=== PATIENT | female | born 1975 | race African-American/Black ===

== ENCOUNTER 2024-10-17 12:41 | Emergency (ER) | payer MEDICAID ==
[~2024-10-17] VITALS: Ht 162.6 cm; Wt 82.0 kg
[2024-10-17 12:42] VITALS: O2SAT 98
[2024-10-17] MEDS: SODIUM CHLORIDE 0.9% 1,000 ML IV ONE (13:00)
[2024-10-17] MEDS ORDERED: ONDANSETRON HCL 4MG/2ML INJ IV STA (13:05)
[2024-10-17 14:12] LABS: CHLORIDE 96 mEq/L (98-107); POTASSIUM 3.3 mEq/L (3.5-5.1); SODIUM 136 mEq/L (136-145)
[2024-10-17 14:13] LABS: CARBON DIOXIDE 25 mEq/L (21-32)
[2024-10-17 14:14] LABS: BASOPHILS % 0.4 % (0.0-2.0); CALCIUM 9.4 mg/dL (8.7-10.4); HEMATOCRIT. 37.4 % (36.0-48.0); HEMOGLOBIN. 12.1 g/dL (12.0-16.0); LYMPHOCYTES % 15.8 % (20.0-50.0); MEAN CORPUSCULAR HEMOGLOBIN 28.8 pg (28.0-32.0); MEAN CORPUSCULAR HGB CONC 32.5 g/dL (31.0-37.0); MEAN CORPUSCULAR VOLUME 88.7 fL (81.0-99.0); MEAN PLATELET VOLUME 7.5 fl (7.4-10.4); MONOCYTES % 8.8 % (2.0-8.0); PLATELET 317 x1000/uL (130-400); RED BLOOD CELL COUNT 4.22 mill/uL (4.2-5.4); RED CELL DISTRIBUTION WIDTH 15.9 % (11.6-14.6); WHITE BLOOD COUNT 8.4 x1000/uL (4.5-11.0)
[2024-10-17 14:17] LABS: HCG SCREEN NEGATIVE
[2024-10-17 14:18] LABS: CREATININE 0.7 mg/dL (0.6-1.0); GLUCOSE 103 mg/dL (70-105)
[2024-10-17 14:19] LABS: TROPONIN I HIGH SENSITIVITY 15 ng/L (3.0-34); UREA NITROGEN BLOOD 6 mg/dL (9-23)
[2024-10-17 14:20] LABS: ALANINE AMINOTRANSFERASE 32 IU/L (10-49); ALBUMIN 4.9 g/dL (3.2-4.8); ASPARTATE AMINOTRANSFERASE 41 IU/L (<34); INR 1.1; PROTHROMBIN TIME 11.3 sec (9.6-11.0)
[2024-10-17 14:21] LABS: BILIRUBIN DIRECT 0.2 mg/dL (<=3.0); BILIRUBIN TOTAL 0.6 mg/dL (0.1-1.0); PROTEIN TOTAL 9.3 g/dL (6.0-8.3)
[2024-10-17] MEDS: ONDANSETRON HCL 4MG/2ML INJ IV NR (14:46)
[2024-10-17] MEDS: HYDRALAZINE 20MG/ML VIAL IV ONE (14:55)
[2024-10-17] MEDS ORDERED: POTASSIUM CHLORIDE 20MEQ TABLET SR PO ONE (15:30)
[2024-10-17 16:58] LABS: TROPONIN I HIGH SENSITIVITY 19 ng/L (3.0-34)
[2024-10-17] MEDS: POTASSIUM CHLORIDE 20MEQ TABLET SR PO NR (17:29)
[2024-10-17 19:50] LABS: CLARITY URINE CLEAR (CLEAR); COLOR URINE YELLOW (YELLOW); GLUCOSE URINE NEGATIVE (NEGATIVE); KETONES URINE 2+ (NEGATIVE); LEUKOCYTE ESTERASE URINE NEGATIVE (NEGATIVE); NITRITE URINE NEGATIVE (NEGATIVE); OCCULT BLOOD URINE NEGATIVE (NEGATIVE); PH URINE 7.5 (4.5-8.0); PROTEIN URINE 3+ (NEGATIVE); UROBILINOGEN URINE 0.2 E.U./dL (0.2-1.0)
[2024-10-17 20:05] LABS: BACTERIA URINE TRACE; SQUAMOUS EPITHELIAL CELL URINE 1+ /lpf (RARE/1+); WBC URINE 0-2 /hpf (0-2)
[2024-10-17] MEDS ORDERED: ONDA-239 PO (20:14)
[2024-10-17] MEDS ORDERED: CEFP200T13 MT (20:14)
[2024-10-17] MEDS ORDERED: NAPR-681 MT (20:14)
[2024-10-17 20:29] VITALS: BP 160/66; PULSE 102; RESP 18; TEMP 36.8; O2SAT 99
== END 2024-10-17 20:29 | disposition home or self-care (01) ==
LOC: ER 12:41
DX: N39.0 Urinary tract infection, site not specified (principal); R10.12 Left upper quadrant pain; I10 Essential (primary) hypertension; N20.0 Calculus of kidney; Z88.2 Allergy status to sulfonamides; Z79.1 Long term (current) use of non-steroidal anti-inflammatories (NSAID); I25.10 Atherosclerotic heart disease of native coronary artery without angina pectoris; Z79.899 Other long term (current) drug therapy
CPT/HCPCS: 99285; 74176; 96374; 96361; 71045; 96375; 80076; 80048; 81003; 84703; 83690; 85025; 85610; 84484; 36415; 93005; J0360; J2405; J7030